=== PATIENT | male | born 1975 | race Caucasian/White ===

== ENCOUNTER 2022-02-20 16:41 | Emergency (ER) | payer SELFPAY ==
[~2022-02-20] VITALS: Ht 180.3 cm; Wt 99.1 kg
[2022-02-20 16:42] VITALS: BP 136/79
== END 2022-02-20 18:45 | disposition left against medical advice (07) ==
LOC: M ED 16:41
DX: Z53.29 Procedure and treatment not carried out because of patient's decision for other reasons (principal)

== ENCOUNTER → 2022-04-03 | Outpatient (CLI) | payer OTHER | LOC: M PLAIMG 07:08 | PROVIDERS: ATTEND Orthopaedic Surgery Hand Surgery | DX: S63.392A Traumatic rupture of other ligament of left wrist, initial encounter (principal) ==